=== PATIENT | male | born 1930 | race Caucasian/White ===

== ENCOUNTER 2016-06-18 09:15 | Day surgery (SDC) | payer MEDICARE, OTHER ==
--- NOTE | ~2016-06-18 | EGD ---
EGD REPORT [facility] [address] [address] NAME: SHIRA PURVIS : [birth year] STATUS : REG [facility] PAT#: [id number] AGE: 85 ADM/REG DATE : 06/18/16 MR#: [id number] REPORT SERV DATE: 06/18/16 DICTATED BY: JOHANA IBARRA DATE: 06/18/16 REPORT STATUS : Draft [facility] DATE: 06/18/16 [facility] Patient Name: Shira Purvis Date of : 1930 Attending MD: JOHANA IBARRA MD Procedure Date No Time: 06/18/2016 Procedure: Colonoscopy Indications: Abdominal pain in the right lower quadrant, Chronic diarrhea, Weight loss Referring MD: Evelyn NUNEZ MD Medicines: Propofol per Anesthesia Complications: No immediate complications. Procedure: Pre-Anesthesia Assessment: - ASA Grade Assessment: III - A patient with severe systemic disease. After I obtained informed consent, the scope was passed under direct vision. Throughout the procedure, the patient's blood pressure, pulse, and oxygen saturations were monitored continuously. The CF [id number] was introduced through the anus and advanced to the terminal ileum. The colonoscopy was performed without difficulty. The patient tolerated the procedure well. The quality of the bowel preparation was good. Findings: The perianal exam was abnormal. Findings include non-thrombosed internal hemorrhoids and internal hemorrhoids that prolapse with straining, but require manual replacement into the anal canal (Grade III). The terminal ileum appeared normal. Biopsies were taken with a cold forceps for histology. The colon (entire examined portion) appeared normal. Biopsies were taken with a cold forceps from the right colon for evaluation of microscopic colitis. Biopsies were taken with a cold forceps from the left colon for evaluation of microscopic colitis. Multiple small and large-mouthed diverticula were found in the recto-sigmoid colon, in the sigmoid colon and in the descending colon. Non-bleeding internal hemorrhoids were found during retroflexion, during perianal exam and during digital exam and were moderate, large and Grade III (internal hemorrhoids that prolapse but require manual reduction). Impression: - Non-thrombosed internal hemorrhoids and internal hemorrhoids that prolapse with straining, but require manual replacement into the anal canal (Grade III) found on perianal exam. - The examined portion of the ileum was normal. Biopsied. EGD REPORT [place] [id number] [facility] [place]. [address] NAME: SHIRA PURVIS : [birth year] STATUS : REG [facility] [place]#: [id number] AGE: 85 ADM/REG DATE : 06/18/16 MR#: [id number] REPORT SERV DATE: 06/18/16 DICTATED BY: JOHANA IBARRA DATE: 06/18/16 REPORT STATUS : Draft TRANSCRIBED BY: [employer] DATE: 06/18/16 - The entire examined colon is normal. Biopsied. - Diverticulosis in the recto-sigmoid colon, in the sigmoid colon and in the descending colon. - Non-bleeding internal hemorrhoids. Recommendation: - Patient has a contact number available for emergencies. The signs and symptoms of potential delayed complications were discussed with the patient. Return to normal activities tomorrow. Written discharge instructions were provided to the patient. - Return to previous diet. - Continue present medications. - Await pathology results. - Return to my office as previously scheduled. - Discharge patient to home. Procedure Code(s): --- Professional --- 89208, Colonoscopy, flexible, proximal to splenic flexure; with biopsy, single or multiple Diagnosis Code(s): --- Professional --- K64.2, Third degree hemorrhoids K57.30, Diverticulosis of large intestine without perforation or abscess without bleeding R10.31, Right lower quadrant pain K52.9, Noninfective gastroenteritis and colitis, unspecified R63.4, Abnormal weight loss CPT copyright 2013 [employer]. All rights reserved. The codes documented in this report are preliminary and upon silk screen processor review may be revised to meet current compliance requirements. Johana Ibarra MD JOHANA IBARRA MD 06/18/2016 12:21 PM This report has been signed electronically. Number of Addenda: 0 Note Initiated On: 06/18/2016 11:25 AM Scope Withdrawal Time 0 hours 19 minutes 17 seconds [id number] [place] [id number]
[~2016-06-18 09:15] MED LIST: ALLEGRA180 PO; AMIT25 PO; ASAB PO; BEN25 PO; BENADRYL 50 MG50 MG PO; CARDCD120 PO; CLARIT10 PO; COREG6 PO; DYRENIUM50 MG PO; FLONASE NAS; FOLIC PO; GLAUCOMA GTT OPH; HYT1 PO; IMDUR30 PO; KCL20UDL PO; KLOR-CON 1010 MEQ PO; L20 PO; L40 PO; LIPITOR20 PO; LIPITOR40 PO; LOP25 PO; MAX25 PO; METPAKSF PO; MULTI-VIT HP OR; MULTIVIT/MIN PO; NITROSTAT0.4 MG SL; NYSTATIN-TRIAMC15 G1 TOP; P5 PO; PCET PO; PHENADOZ12.5 MG RE; PRAVACHOL40 MG PO; PRILO PO; PRILOSEC OTC20 MG PO; PRIN2.5 PO; PROTONIX PO; PROVHFA INH; RAN500 PO; TOBDEX5 OPH; VENTOLIN HFA; VENTOLIN HFA INH; VITA10 PO; VITAMIN B PO; VITAMIN B-121000 MC1 SL; VITAMIN B-1500 MG PO; VITAMIN D1000 UNI1 PO; XALAT OPH; [UNRECOGNIZED DRUG - OTHER] PO
== END 2016-06-18 23:59 | disposition home or self-care (01) ==
LOC: DMU 09:15
PROVIDERS: Internal Medicine Gastroenterology
PROC: 0DBE8ZX Excision of Large Intestine, Via Natural or Artificial Opening Endoscopic, Diagnostic (ICD-10-PCS; 2016-06-18)
PROC: 0DBB8ZX Excision of Ileum, Via Natural or Artificial Opening Endoscopic, Diagnostic (ICD-10-PCS; principal; 2016-06-18 10:30)
DX: K52.9 Noninfective gastroenteritis and colitis, unspecified (principal); K64.2 Third degree hemorrhoids; K57.30 Diverticulosis of large intestine without perforation or abscess without bleeding; R10.31 Right lower quadrant pain; R63.4 Abnormal weight loss; I25.10 Atherosclerotic heart disease of native coronary artery without angina pectoris; I10 Essential (primary) hypertension; K91.89 Other postprocedural complications and disorders of digestive system; K50.90 Crohn's disease, unspecified, without complications; M19.90 Unspecified osteoarthritis, unspecified site; H91.90 Unspecified hearing loss, unspecified ear; L30.9 Dermatitis, unspecified; I63.9 Cerebral infarction, unspecified; Z90.89 Acquired absence of other organs; Z90.49 Acquired absence of other specified parts of digestive tract; Z95.5 Presence of coronary angioplasty implant and graft; Z95.1 Presence of aortocoronary bypass graft; Z98.42 Cataract extraction status, left eye; Z96.1 Presence of intraocular lens; Z88.1 Allergy status to other antibiotic agents; Z87.891 Personal history of nicotine dependence; Z86.73 Personal history of transient ischemic attack (TIA), and cerebral infarction without residual deficits; Z79.82 Long term (current) use of aspirin; Z79.899 Other long term (current) drug therapy
CPT/HCPCS: 80053; 85025; 87040; 88305; 99284